=== PATIENT | male | born 1965 | race Caucasian/White ===

== ENCOUNTER 2019-10-19 15:05 | Emergency (ER) | payer MEDICAID ==
[~2019-10-19] VITALS: Ht 193 cm; Wt 108.0 kg
[2019-10-19] MEDS ORDERED: CEPH500C5 PO (16:49)
[2019-10-19] MEDS ORDERED: MUPI22OI30 TP (16:49)
[2019-10-19] MEDS ORDERED: DOXY100C2 PO (16:49)
[2019-10-19] MEDS ORDERED: DOXYCYCLINE 100MG CAPSULE PO STA (16:51)
[2019-10-19] MEDS ORDERED: cephalexin 250mg capsule PO ONE (16:55)
[2019-10-19 17:00] VITALS: BP 128/98
== END 2019-10-19 17:01 | disposition home or self-care (01) ==
LOC: ER 15:06
DX: L03.116 Cellulitis of left lower limb (principal); E11.42 Type 2 diabetes mellitus with diabetic polyneuropathy; Z86.718 Personal history of other venous thrombosis and embolism; Z86.14 Personal history of Methicillin resistant Staphylococcus aureus infection
CPT/HCPCS: 99283

== ENCOUNTER 2019-11-02 15:49 | Emergency (ER) | payer MEDICAID ==
[~2019-11-02] VITALS: Ht 193 cm; Wt 111.4 kg
[2019-11-02 15:59] VITALS: BP 131/91
== END 2019-11-02 16:45 | disposition home or self-care (01) ==
LOC: ER 15:50
DX: T16.1XXA Foreign body in right ear, initial encounter (principal); E11.42 Type 2 diabetes mellitus with diabetic polyneuropathy; Z86.14 Personal history of Methicillin resistant Staphylococcus aureus infection; Z00.00 Encounter for general adult medical examination without abnormal findings; Z86.718 Personal history of other venous thrombosis and embolism
CPT/HCPCS: 99281